=== PATIENT | male | born 1970 | race Caucasian/White ===

== ENCOUNTER 2018-11-22 16:14 | Inpatient (IN) | payer OTHER | END 2018-11-24 19:36 | disposition home or self-care (01) | LOC: CENTRAL 22:30 → ER 16:14 → OVERFLOW 16:15 → CENTRAL 22:36 | DX: N17.9 Acute kidney failure, unspecified (principal); N39.0 Urinary tract infection, site not specified; N13.2 Hydronephrosis with renal and ureteral calculous obstruction ==